=== PATIENT | male | born 1980 | race Caucasian/White ===

== ENCOUNTER 2024-01-01 12:29 | Emergency (ER) | payer BC, SELFPAY ==
[2024-01-01 12:46] VITALS: BP 171/96
[2024-01-01 13:14] LABS: % Basophils 0.5 % (0-2); % Eosinophils 1.5 % (0-6); % Immature Granulocytes 0.2 % (0-0.5); % Lymphocytes 27.2 % (20.5-51.1); % Neutrophils 64.6 % (42.2-75.2); Absolute Eosinophils 0.1 10^3/uL (0-0.7); Absolute Lymphocytes 1.5 10^3/uL (1.2-3.4); Absolute Monocytes 0.3 10^3/uL (0.1-0.6); Absolute Neutrophils 3.6 10^3/uL (1.4-6.5); Hematocrit 42.2 % (39.0-52.0); Hemoglobin 15.3 g/dL (13.0-18.0); Mean Corp Hgb Conc. 36.3 g/dL (33.0-37.0); Mean Corpuscular Hgb 29.5 pg (27.0-31.0); Mean Corpuscular Volume 81.3 fL (80.0-94.0); Mean Platelet Volume 10.6 fL (7.4-10.4); Nucleated Red Blood Cells % 0 % (-); Platelet Count 180 10^3/uL (130-400); Red Blood Cell Count 5.19 10^6/uL (4.70-6.10); White Blood Cell Count 5.5 10^3/uL (4.8-10.8)
[2024-01-01 13:34] LABS: ALT (SGPT) 29 U/L (0-50); AST (SGOT) 28 U/L (17-59); Albumin 4.8 g/dl (3.5-5.0); Alkaline Phosphatase 69 U/L (38-126); Blood Urea Nitrogen 13 mg/dl (9-20); Calcium 9.8 mg/dl (8.4-10.2); Carbon Dioxide 25 mmol/L (22-30); Chloride 105 mmol/L (98-107); Glucose 89 mg/dl (70-99); Potassium 4.4 mmol/L (3.5-5.1); Sodium 141 mmol/L (135-145); Total Protein 7.2 g/dl (6.3-8.2); eGFR > 60.00
[2024-01-01 13:40] VITALS: BP 147/93; BMI 30.7
--- NOTE | 2024-01-01 13:40 | EDRN ---
Pt states pain in R lower back started Monday night, has been constant thought getting worse daily, achy and 7/10.
[2024-01-01 13:55] LABS: Urine Albumin Negative (Neg - Trace); Urine Bilirubin Negative (Negative); Urine Character Clear (Clear); Urine Color Yellow; Urine Glucose Negative (Negative); Urine Ketone Negative (Negative); Urine Leukocyte Negative (Negative); Urine Nitrite Negative (Negative); Urine Occult Blood Negative (Negative); Urine Specific Gravity 1.005 (<1.030); Urine Urobilinogen Negative (Neg - 1+)
--- NOTE | 2024-01-01 14:25 | ED.GENMED ---
History of Present Illness
<Carmen Jenkins MD, Resident - Last Filed: 01/01/24 15:04>
General
Chief Complaint: Back Pain
Source: patient
Exam Limitations: none
Time Seen by Provider: 01/01/24 13:37
History of Present Illness
History of Present Illness:
Patient complains of mid back pain, literally on the right side that started on Monday, his pain is dull and stabbing and gradually worsened to 7 out of 10 in intensity with intermittent radiation into the right flank and abdomen. He denies
having positional variations, prior trauma, lifting of heavy objects that triggered the pain, dysuria, frequency, hesitancy, constipation or diarrhea, nausea or vomiting.
He denies pain over the spine, associated tingling or numbness with his back pain, radiation of his back pain into his legs or into the neck.
He initially took ibuprofen with no much help from Monday to Monday, but took Tylenol yesterday and it helped him sleep.
Patient denies having any chest pain, shortness of breath, palpitations, fevers, chills, recent travel outside of [facility], and sick contacts.
If applicable-neuro sx onset
Onset of symptoms known: No
Time pt last seen normal is known: No
Past History
<Carmen Jenkins MD, Resident - Last Filed: 01/01/24 15:04>
Past History
ED Past Medical History: None and Hypercholesterolemia (Not on any medication.)
ED Past Surgical History: None
Patient has exhibited threatening behavior?: No
Social History
Tobacco: Non-smoker
Alcohol: Occasional (1 beer a week.)
Drug: None
Personal:
Living: with family
Employment: Employed
Family History
Family History: Hypertension and Other (Valve repair, unclear if abdominal or aortic in father at age 60.)
Review of Systems
<Carmen Jenkins MD, Resident - Last Filed: 01/01/24 15:04>
Review of Systems
Allergies reviewed?: Yes
All Other Systems: ROS reviewed and negative except as documented in HPI and ROS
Phy Exam
<Carmen Jenkins MD, Resident - Last Filed: 01/01/24 15:04>
General Physical Exam
General Presentation: well appearing and no apparent distress
General age: appears stated age
General Skin: warm
General Habitus: normal
General Mental: alert
ENT Exam
ENT Exam: EOMI, TM's normal and pharyngeal erythema
Eye Exam
Eye Exam: PERRL and EOMI
Cardiovascular Exam
Cardiovascular Exam: regular rate/rhythm, no edema, no gallop, no murmur and normal peripheral pulses
Heart Sounds: normal
CORBY Score
Is patient's age greater than or equal to 65 years: No
Does patient have 3 or more CAD risk factors?: No
Does patient have known CAD: No
Has patient used ASA in past seven days?: No
Has patient had severe angina in past 24 hrs?: No
Are patient's cardiac markers elevated?: No
Are there ST changes greater 0.05mm?: No
Result score?: 0
Pulmonary Exam
Pulmonary Exam: lungs clear, no respiratory distress, no rales, no crackles, no rhonchi and no wheezing
Gastrointestinal Exam
Gastrointestinal Exam: normal bowel sounds, non tender, soft, no pulsatile mass and non distended
Genitourinary Exam Male
Exam Male: no CVAT and other (No suprapubic tenderness.)
Neurological Exam
Neurological Exam: alert, oriented x3, CN II-XII intact, no motor deficits, normal reflexs, no sensory deficits, speech normal and cerebellum intact
Musculoskeletal Exam
Musculoskeletal Exam: full ROM (At the cervical spine, trunk, bilateral hips -both active and passive), neck pain (Negative), back pain (Negative), back tenderness (No spinal or paraspinal tenderness in the thoracic and lumbar regions.) and neuro
vasc intact
Skin Exam
Skin Exam: normal color
Psychiatric Exam
Psychiatric Exam: normal mood/affect
<Smita Knox DO - Last Filed: 01/01/24 17:21>
CORBY Score
Result score?: 0
Course
<Carmen Jenkins MD, Resident - Last Filed: 01/01/24 15:04>
Orders/Labs/Results
Orders:
Orders
01/01/24 12:58
Complete Blood Count/With Diff Urgent
Comprehensive Metabolic Panel Urgent
Urinalysis Reflex To Culture Urgent
Date Specimen was Collected: 01/01/24
Time Specimen was Collected: 12:52
01/01/24 14:36
Ketorolac [Toradol] 15 mg IM NOW STA
01/01/24 15:07
CT Abd/pel Without Iv Or Oral Urgent
Comment:
Reason For Exam: right flank pain, evaluate for renal stone
Abnormal Lab Results
01/01/24
12:58
MPV 10.6 H fL
(7.4-10.4)
01/01/24 14:15
01/01/24 14:15
Vital Signs
Initial and Last Documented VS:
Initial Vital Signs
Temp Pulse Resp BP Pulse Ox
98.4 F 68 16 171/96 98
01/01/24 12:46 01/01/24 12:46 01/01/24 12:46 01/01/24 12:46 01/01/24 12:46
Last Documented Vital Signs
Temp Pulse Resp BP Pulse Ox
98.4 F 68 16 146/86 98
01/01/24 12:46 01/01/24 16:47 01/01/24 16:47 01/01/24 16:47 01/01/24 16:47
<Smita Knox DO - Last Filed: 01/01/24 17:21>
Orders/Labs/Results
Orders:
Orders
01/01/24 12:58
Complete Blood Count/With Diff Urgent
Comprehensive Metabolic Panel Urgent
Urinalysis Reflex To Culture Urgent
Date Specimen was Collected: 01/01/24
Time Specimen was Collected: 12:52
01/01/24 14:36
Ketorolac [Toradol] 15 mg IM NOW STA
01/01/24 15:07
CT Abd/pel Without Iv Or Oral Urgent
Comment:
Reason For Exam: right flank pain, evaluate for renal stone
Abnormal Lab Results
01/01/24
12:58
MPV 10.6 H fL
(7.4-10.4)
01/01/24 14:15
01/01/24 14:15
Vital Signs
Initial and Last Documented VS:
Initial Vital Signs
Temp Pulse Resp BP Pulse Ox
98.4 F 68 16 171/96 98
01/01/24 12:46 01/01/24 12:46 01/01/24 12:46 01/01/24 12:46 01/01/24 12:46
Last Documented Vital Signs
Temp Pulse Resp BP Pulse Ox
98.4 F 68 16 146/86 98
01/01/24 12:46 01/01/24 16:47 01/01/24 16:47 01/01/24 16:47 01/01/24 16:47
<Carmen Jenkins MD, Resident - Last Filed: 01/01/24 15:04>
*Critical Care Note
Total Time (30-74mins, 75-104mins- exclusive of procedures): Not Applicable
ED Attending Note
<Carmen Jenkins MD, Resident - Last Filed: 01/01/24 15:04>
-
Portions of this chart may have been created with voice recognition software.� Occasional wrong word or��sound alike� substitutions may have occurred due to the inherent limitations of voice recognition software.
<Smita Knox DO - Last Filed: 01/01/24 17:21>
ED Attending Note
Patient seen and examined by attending physician: Yes
I performed the substantive portion of visit, reviewed & personally made and approve the management plan that is documented in note by myself or MERI.: Yes
I performed a history and physical exam of patient and discussed management with resident, I reviewed resident's note and agree with documented findings and plan of care.: Yes
ED Attending Note:
Patient seen and evaluated at bedside, 43-year-old male with history of hyperlipidemia presenting to the emergency department for right sided back pain. Patient reports symptoms have been present since last week, denies inciting injury or trauma.
Denies any radiation of pain. Denies history of kidney stones. Denies urinary complaints. He has been taking Tylenol and Motrin with mild relief of symptoms. Pain has been a dull ache, not reproducible. Reports history of herniated disc in the
past, however pain feels different than this incident. Denies numbness or tingling or weakness to his legs. Denies chest pain or difficulty breathing. Pain denies fever or systemic symptoms. Vital signs significant for hypertension, however
improved without intervention.
On exam patient is well-appearing, nontoxic. No tenderness to the abdomen. No reproducible tenderness to the flank, back, spine. Lower suspicion for musculoskeletal quality given absence of reproducible tenderness. Renal colic is a
consideration. Laboratory analysis obtained prior to my assessment, no leukocytosis, normal renal function. Urine without sign of blood. Given persistence of symptoms, plan for CT abdomen pelvis to evaluate for a stone. Toradol administered for
pain.
17:20 -CT without acute abnormality. At this time, more likely diagnosis of musculoskeletal quality to pain. Will provide prescriptions for Medrol Dosepak, lidocaine patch, muscle relaxer. Patient cautioned against somnolence for muscle relaxer.
Otherwise feel stable for discharge. Strict return precautions communicated and patient verbalized understanding
Discharge Plan
Departure
Prescriptions:
No Action
omeprazole [Prilosec] 10 MG capsule,delayed release(DR/EC)
10 mg PO DAILY Qty: 30 0RF
Interventions
Interventions:
*Risk Screen - Suicide Last Done: 01/01/24 12:46
*General Assessment Last Done: 01/01/24 13:40
*Neglect/Abuse Screening Last Done: 01/01/24 12:46
ED- Fall Risk Assessment Last Done: 01/01/24 13:40
*ED COVID-19 Vaccine History Last Done: 01/01/24 12:46
ED-Musculoskeletal Assessment Last Done: 01/01/24 13:25
Discharge Date and Time
Print Language: GREENLANDIC
[2024-01-01 14:45] VITALS: BMI 30.7
[2024-01-01 14:57] VITALS: BP 137/90
[2024-01-01] MEDS: TORADOL 15 MG IM (14:59)
[2024-01-01 16:47] VITALS: BP 146/86
--- NOTE | 2024-01-01 16:53 | EDRN ---
This RN TT'd Dr. Knox that CT is resulted at this time.
== END 2024-01-01 17:38 | disposition home or self-care (01) ==
LOC: EMR 12:29
PROVIDERS: EMERGENCY PHYSICIAN Student in an Organized Health Care Education/Training Program; FAMILY PHYSICIAN Physician Assistant Medical
DX: M54.6 Pain in thoracic spine (principal); E78.00 Pure hypercholesterolemia, unspecified; I10 Essential (primary) hypertension
CPT/HCPCS: 99284; 96372; 74176; 80053; 81003; 85025